=== PATIENT | female | born 1960 | race African-American/Black ===

== ENCOUNTER 2018-10-18 16:21 | Emergency (ER) | payer OTHER ==
[~2018-10-18] VITALS: Ht 162.6 cm; Wt 99.8 kg
[2018-10-18 16:32] VITALS: BP 111/80
--- NOTE | 2018-10-18 16:32 | NUR ---
ED Nurse Note: Patient walked in to ER c/o coughing for 3 weeks with grean and thick mucus present. congestion sound noted. pt aao x4 and ambulatory. skin clean and intact.
--- NOTE | 2018-10-18 17:01 | NUR ---
ED Nurse Note: x-ray at bedside.
[2018-10-18] MEDS ORDERED: DOXYCYCLINE MO100 MG ORAL (17:06)
[2018-10-18] MEDS ORDERED: CLARITIN10 M2 ORAL (17:06)
[2018-10-18] MEDS ORDERED: GUAIFENESIN DM118 M1 ORAL (17:06)
[2018-10-18 17:11] VITALS: BP 124/86
--- NOTE | 2018-10-18 17:12 | NUR ---
ER DISCHARGE NOTE: Patient is cleared to be discharged per ERMD after discussing chest x-ray result with patient, pt is aox4, on room air, with stable vital signs. pt was given dc and prescription instructions, pt was able to verbalize understanding, pt id band removed. pt is able to ambulate with steady gait. pt took all belongings.
--- NOTE | 2018-10-18 17:19 | Emergency Room Report ---
History of Present Illness General Chief Complaint: Upper Respiratory Illness Source: Patient Present Illness HPI Patient 58-year-old female presented after increased cough for the past 3 weeks. Patient reports of increased productive cough. She reports having some facial pain. She states she been having yellow-green productive sputum. She denies any fever. She states that she is a former smoker. She denies any chest pain or shortness of breath. She had intermittent episodes of coughing which were nonbloody. She denies Leg swelling. Allergies: Coded Allergies: No Known Allergies (Unverified , 10/18/18) Patient History Past Medical History: see triage record Now: No Reviewed Nursing Documentation: PMH: Agreed; PSxH: Agreed Nursing Documentation-PMH Past Medical History: No History, Except For Review of Systems All Other Systems: negative except mentioned in HPI Physical Exam Vital Signs Date Time Temp Pulse Resp B/P (MAP) Pulse Ox O2 Delivery O2 Flow Rate FiO2 10/18/18 16:26 98.2 85 20 111/80 (90) 95 Room Air Sp02 EP Interpretation: reviewed, normal General Appearance: normal inspection, well appearing, no apparent distress, alert, GCS 15 Head: atraumatic ENT: normal ENT inspection, hearing grossly normal, normal voice Neck: normal inspection, full range of motion, supple, no bony tend Respiratory: normal inspection, lungs clear, normal breath sounds, no respiratory distress, no retraction, no wheezing Cardiovascular #1: regular rate, rhythm, no edema Gastrointestinal: normal inspection, normal bowel sounds, non tender, soft, no guarding, no hernia Genitourinary: no CVA tenderness Musculoskeletal: normal inspection, back normal, normal range of motion Neurologic: normal inspection, alert, oriented x3, responsive, modeler III-XII nml as tested, speech normal Psychiatric: normal inspection, judgement/insight normal, mood/affect normal Skin: normal inspection, normal color, no rash Medical Decision Making Diagnostic Impression: Primary Impression: Sinusitis ER Course Patient presented for cough. Differential diagnosis include is not limited to sinusitis, bronchitis, pneumonia, mass among others. Patient has a benign exam and does not appear to require any further laboratory testing at this time. Patient was noted to have some evidence of sinus disease. She was given prescription of antibiotics due to prolonged time. Chest x-ray 1 view interpreted by me showed normal cardiac size without evident infiltrate or effusion.Greater than 3 weeks of coughing. Patient is advised to follow-up with her primary care physician for recheck. Advised to return if she had worsening condition or other concerns. Last Vital Signs Date Time Temp Pulse Resp B/P (MAP) Pulse Ox O2 Delivery O2 Flow Rate FiO2 10/18/18 17:11 98.2 81 20 124/86 96 Room Air Status: improved Disposition: HOME, SELF-CARE Condition: Stable Scripts Loratadine (CLARITIN) 10 Mg Capsule 10 MG ORAL DAILY, #20 CAP Prov: Stephen Kohler MD 10/18/18 Guaifenesin/Dextromethorphan (Guaifenesin Dm Syrup) 5 Ml Syrup 1 TSP ORAL Q8H, #118 ML 0 Refills Prov: Stephen Kohler MD 10/18/18 Doxycycline Monohydrate* (DOXYCYCLINE MONOHYDRATE*) 100 Mg Capsule 100 MG ORAL Q12H, #14 CAP 0 Refills Prov: Stephen Kohler MD 10/18/18 Patient Instructions: Sinusitis, Adult Stephen Kohler MD Oct 18, 2018 17:19
--- NOTE | 2018-10-19 12:44 | Diagnostic Imaging Report ---
Indication: Dyspnea Comparison: None A single view chest radiograph was obtained. Findings: Cardiomediastinal appearance is within normal limits for age. The lungs are clear. Pulmonary vascularity is appropriate. The diaphragmatic contour is smooth and costophrenic angles are sharp. No pleural effusions are identified. The bones are unremarkable. Impression: No acute findings
== END 2018-10-18 17:10 | disposition home or self-care (01) ==
LOC: EMR 16:41
DX: J32.9 Chronic sinusitis, unspecified (principal)
CPT/HCPCS: 71045; 99283

== ENCOUNTER 2018-12-24 21:10 | Emergency (ER) | payer OTHER ==
[~2018-12-24] VITALS: Ht 160 cm; Wt 99.8 kg
[~2018-12-24 21:10] MED LIST: CLARITIN10 M2 ORAL; DOXYCYCLINE MO100 MG ORAL; GUAIFENESIN DM118 M1 ORAL
[2018-12-24 21:44] VITALS: BP 112/81
--- NOTE | 2018-12-24 21:44 | NUR ---
ED Nurse Note: Walk-in patient presents with complaints of UTI.
--- NOTE | 2018-12-24 22:06 | Emergency Room Report ---
History of Present Illness General Chief Complaint: Female Urogenital Problems Source: Patient Present Illness HPI This is a 58-year-old female with no past medical history. She presents with chief complaint of lower back pain. Onset for last couple days. Worse with movement. No trauma. No dysuria frequency. No hematuria. Because of the back pain, she was worried that she may have a urinary tract infection. Denies any other complaint. Has not take any medication. Allergies: Coded Allergies: No Known Allergies (Unverified , 10/18/18) Patient History Past Medical History: see triage record, old chart reviewed Past Surgical History: none Pertinent Family History: none Social History: Denies: smoking Now: No Immunizations: other Reviewed Nursing Documentation: PMH: Agreed; PSxH: Agreed Nursing Documentation-PMH Past Medical History: No Stated History Review of Systems Eye: Denies: eye pain, blurred vision ENT: Denies: ear pain, nose congestion, throat swelling Respiratory: Denies: cough, shortness of breath Cardiovascular: Denies: chest pain, palpitations Gastrointestinal: Denies: abdominal pain, diarrhea, nausea, vomiting Musculoskeletal: Reports: back pain; Denies: joint pain Skin: Denies: rash Neurological: Denies: headache, numbness Endocrine: Denies: increased thirst, increased urine Hematologic/Lymphatic: Denies: easy bruising All Other Systems: negative except mentioned in HPI Physical Exam Vital Signs Date Time Temp Pulse Resp B/P (MAP) Pulse Ox O2 Delivery O2 Flow Rate FiO2 12/24/18 21:44 98.1 71 18 112/81 (91) 97 Room Air Vitals normal Sp02 EP Interpretation: reviewed, normal General Appearance: well appearing, no apparent distress, alert, obese Head: normocephalic, atraumatic Eyes: bilateral eye PERRL, bilateral eye EOMI ENT: hearing grossly normal, normal pharynx Neck: full range of motion, supple, no meningismus Respiratory: chest non-tender, lungs clear, normal breath sounds Cardiovascular #1: regular rate, rhythm, no murmur Gastrointestinal: normal bowel sounds, non tender, no mass, no organomegaly, no bruit, non-distended Musculoskeletal: back normal - Tenderness to the lower lumbar area mostly left side. No anesthesia or percussive tenderness., gait/station normal, normal range of motion Neurologic: alert, oriented x3 Psychiatric: mood/affect normal Medical Decision Making Diagnostic Impression: Primary Impression: Low back pain Qualified Codes: M54.5 - Low back pain ER Course Patient with lower back pain. No evidence of cauda equina syndrome, spinal rib abscess or neoplastic process. No evidence of urinary tract infection. Will discharge home. Last Vital Signs Date Time Temp Pulse Resp B/P (MAP) Pulse Ox O2 Delivery O2 Flow Rate FiO2 12/24/18 21:44 98.1 86 18 112/81 97 Room Air Status: improved Disposition: HOME, SELF-CARE Condition: Stable Scripts Ibuprofen* (MOTRIN*) 600 Mg Tablet 600 MG ORAL THREE TIMES A DAY, #30 TAB 0 Refills Prov: Lizandro Jalloh MD 12/24/18 Additional Instructions: Follow-up with your doctor in 7 days. No heavy lifting. Return if symptoms worsen. Lizandro Jalloh MD Dec 24, 2018 22:06
[2018-12-24 22:10] LABS: APPEARANCE,URINE CLEAR; BILIRUBIN, URINE NEGATIVE (NEGATIVE); GLUCOSE, URINE (UA) NEGATIVE (NEGATIVE); KETONES,URINE NEGATIVE (NEGATIVE); LEUKOCYTE ESTERASE ,URINE 1+ (NEGATIVE); NITRITE,URINE NEGATIVE (NEGATIVE); PH,URINE 5 (4.5-8.0); PROTEIN,URINE NEGATIVE (NEGATIVE); UROBILINOGEN,URINE NORMAL MG/DL (0.0-1.0)
[2018-12-24 22:16] LABS: COLOR,URINE YELLOW
[2018-12-24] MEDS ORDERED: IBUPROFEN600 MG ORAL (22:33)
--- NOTE | 2018-12-24 22:35 | NUR ---
ED Nurse Note: patient cleared for discharge, verbalized understanding of discharge instructions. Patient ID band removed, patient departed with all belongings.
[2018-12-24 22:38] VITALS: BP 112/81
== END 2018-12-24 22:38 | disposition home or self-care (01) ==
LOC: EMR 22:01
DX: M54.5 Low back pain (principal)
CPT/HCPCS: 81003; 99282